=== PATIENT | female | born 1995 | race Caucasian/White ===

== ENCOUNTER 2019-04-30 20:55 | Emergency (ER) | payer SELFPAY ==
[2019-04-30 21:00] VITALS: BP 131/79; PULSE 108; TEMP 98.2; BMI 30.5
[2019-04-30] MEDS ORDERED: ACETAMINOPHEN 325 MG TABLET (FP) PO ONE (21:50)
[2019-04-30] MEDS ORDERED: METOCLOPRAMIDE HCL 10 MG TABLET (FP) PO ONE ×2 (21:50→22:06)
[2019-04-30] MEDS ORDERED: ACETAMINOPHEN 325 MG TABLET (FP) ONE (22:06)
--- NOTE | 2019-04-30 22:14 | PDOC ---
Documentation entered by Fredy Larry SCRIBE, acting as scribe for Ahsan Umaña MD. Ahsan Umaña MD: This documentation has been prepared by the Laron yanez Xhesika, SCRIBE, under my direction and personally reviewed by me in its entirety. I confirm that the documentation accurately reflects all work, treatment, procedures, and medical decision making performed by me. History of Present Illness - General Chief Complaint: Headache Stated Complaint: HEAD INJURY YESTERDAY Time Seen by Provider: 04/30/19 21:39 History Source: Patient Exam Limitations: No Limitations - History of Present Illness Initial Comments: 04/30/19 21:57 The patient is a 23 year old female with no significant PMH of who presents to the emergency department for headache and intermittent dizziness s/p fall last night. Pt states she took a weighted blanket, put it over her head to see if she would fall and pt fell and hit her head on a glass table.Pt states she immediately iced her forehead and took motrin with mild relief of symptoms. Pt denies LOC, nausea, vomiting, blurry vision/ double vision or numbness/ tingling. Allergies: NKDA Past History - Past Medical History Allergies/Adverse Reactions: Allergies Allergy/AdvReac Type Severity Reaction Status Date / Time No Known Allergies Allergy Unverified 04/30/19 20:57 Home Medications: Ambulatory Orders NK [No Known Home Medication] 04/30/19 COPD: No - Psycho Social/Smoking Cessation Hx Smoking History: Never smoked Review of Systems - Review of Systems Able to Perform ROS?: Yes Comments:: 04/30/19 21:57 Constitutional - Pt denies Fever, Chills, weakness, HEENT: denies vision changes. +sore throat Respiratory: Denies cough, sob, hemoptysis Cardiac: denies chest pain, palpitations, light headedness, leg swelling Abd/GI: denies abd pain, nausea, vomiting, blood per rectum, melena, diarrhea : denies dysuria, frequency, discharge Musculskelatal - denies back pain, joint swelling skin - denies bruising, erythema, rash neurological: denies headache, numbness, focal weakness, tingling, ataxia, weakness hematologic: denies anemia, easy bruising, easy bleeding *Physical Exam - Vital Signs Last Vital Signs Temp Pulse Resp BP Pulse Ox 98.2 F 108 H 16 131/79 100 04/30/19 20:57 04/30/19 20:57 04/30/19 20:57 04/30/19 20:57 04/30/19 20:57 - Physical Exam 04/30/19 21:53 GENERAL: The patient is awake, alert, and fully oriented, Nontoxic - in no acute distress. HEAD: Normocephalic, atraumatic, Without any step-offs, ecchymosis, fluctuance, crepitus. Moderate tenderness to the mid forhead EYES: extraocular movements intact, sclera anicteric, conjunctiva clear. ENT: Normal voice, Moist mucous membranes.No focal midline cervical tenderness NEUROLOGICAL: No facial assymetry, Normal speech, PSYCH: Normal mood, normal affect. SKIN: Warm, Dry, normal turgor, Medical Decision Making - Medical Decision Making 04/30/19 21:53 04/30/19 21:51 23y F presenting with headache sp hitting her head on a glass table (no breakage ) last night. denies any focal neuro sx, n/v, neck pain or pain elsewhere. no red flags will give tylenol,mygraine syspect headache worse due to lack of sleep las tnight supportive care 04/30/19 21:53 Discharge - Discharge Information Problems reviewed: Yes Clinical Impression/Diagnosis: Head injury due to trauma Qualifiers: Encounter type: initial encounter Qualified Code(s): S09.90XA - Unspecified injury of head, initial encounter Condition: Stable Disposition: HOME - Admission No - Follow up/Referral Referrals: [facility] [place] [Provider Group] - Patient Discharge Instructions Patient Printed Discharge Instructions: DI for Closed Head Injury Additional Instructions: Return to the emergency department immediately with ANY new, persistent or worsening symptoms Eluding worsening headache, nausea, vomiting or any other concerns Take Motrin or Tylenol for your headache. Make sure you are getting adequate sleep You MUST call and follow up with your doctor in 4-5 days for further evaluation of your symptoms. Results were discussed with you. Please make sure your doctor reviews the results of your emergency evaluation. Your Emergency Department visit is not complete without a follow up with your doctor. - Post Discharge Activity Work/Back to School Note: Back to Work
== END 2019-04-30 22:20 | disposition home or self-care (01) ==
LOC: FER 20:55
DX: S09.90XA Unspecified injury of head, initial encounter (principal); W22.03XA Walked into furniture, initial encounter; Y93.89 Activity, other specified; Y92.008 Other place in unspecified non-institutional (private) residence as the place of occurrence of the external cause
CPT/HCPCS: 99281-25